=== PATIENT | male | born 1965 | race Caucasian/White ===

== ENCOUNTER → 2017-04-17 | Outpatient (CLI) | payer OTHER | LOC: BRMIMAGING 16:19 | PROVIDERS: ATTEND Physician Assistant Medical | DX: R06.02 Shortness of breath (principal); R05 Cough; R53.1 Weakness; I51.7 Cardiomegaly | CPT/HCPCS: 71046-PO ==

== ENCOUNTER → 2018-06-24 | Outpatient (CLI) | payer OTHER | LOC: BRMIMAGING 12:45 | PROVIDERS: ATTEND Physician Assistant Medical | DX: R07.81 Pleurodynia (principal); S22.32XA Fracture of one rib, left side, initial encounter for closed fracture; I25.10 Atherosclerotic heart disease of native coronary artery without angina pectoris; I27.20 Pulmonary hypertension, unspecified ==